=== PATIENT | female | born 1985 | race Two or more races ===

== ENCOUNTER 2017-06-06 14:32 | Emergency (ER) | payer BC ==
[~2017-06-06] VITALS: Ht 152.4 cm; Wt 52.2 kg
[~2017-06-06 14:32] MED LIST: DIPH25CA58 PO; NITR100C62 PO; PRED20TA PO
[2017-06-06] MEDS ORDERED: IV NORMAL SALINE 1000ML BAG 1,000 ML IV ONE (15:30)
[2017-06-06] MEDS ORDERED: IBUPROFEN 800 MG TABLET. PO ONE (15:30)
--- NOTE | 2017-06-06 15:32 | PHYS DOC ---
Past Medical History Past Medical History: No Pertinent History Past Surgical History: Alcohol Use: None Drug Use: None Adult General Chief Complaint Chief Complaint: GENERALIZED BODY ACHES HPI HPI Patient is a 32 year old F who presents with fever and body aches. Patient was seen last week and diagnosed with UTI and finished her antibiotic treatment and comes in today with generalized body ache and fever. Patient complains of a cough is nonproductive. Patient denies any nausea/vomiting/diarrhea. Patient denies any dysuria. Patient has no other complaints. Review of Systems Review of Systems GEN: Fever and body aches HEENT: Denies blurred vision, sore throat CV: Denies chest pain RESP: Denies shortness of air, cough GI: Denies n/v/d NEURO: Denies confusion, dizziness MSK: Denies weakness, joint pain/swelling All other systems were reviewed and found to be within normal limits, except as documented in this note. Current Medications Current Medications Current Medications Medications (Trade) Dose Ordered Sig/Rakesh Start Time Stop Time Status Last Admin Dose Admin Ibuprofen (Motrin) 800 mg 1X ONCE 06/06/17 15:30 06/06/17 15:31 DC 06/06/17 15:35 800 MG Sodium Chloride 1,000 ml @ 1,000 mls/hr 1X ONCE 06/06/17 15:30 06/06/17 16:29 DC 06/06/17 15:35 1,000 MLS/HR Allergies Allergies Allergies Coded Allergies Type Severity Reaction Last Updated Verified No Known Drug Allergies 05/30/17 No Physical Exam Physical Exam GEN.: mod distress. Alert and oriented. HEENT: Head is normocephalic, atraumatic NECK: Supple. LUNGS: CTAB. HEART: Tachycardia, S1, S2 present. Peripheral pulses intact ABDOMEN: Soft, nontender. Positive bowel sounds. EXTREMITIES: Without any cyanosis. NEUROLOGIC: Normal speech, normal tone PSYCHIATRIC: Normal affect, normal mood. SKIN: No ulcerations Current Patient Data Vital Signs Vital Signs Date Time Temp Pulse Resp B/P (MAP) Pulse Ox O2 Delivery O2 Flow Rate FiO2 06/06/17 14:41 102.0 101 16 98 Room Air 102.0 Lab Values Laboratory Tests Test 06/06/17 14:50 06/06/17 14:56 06/06/17 15:35 Urine Collection Type Unknown Urine Color Yellow Urine Clarity Clear Urine pH 8.5 Urine Specific [place] <=1.005 Urine Protein Negative mg/dL (NEG-TRACE) Urine Glucose (UA) Negative mg/dL (NEG) Urine Ketones (Stick) Negative mg/dL (NEG) Urine Blood Negative (NEG) Urine Nitrite Negative (NEG) Urine Bilirubin Negative (NEG) Urine Urobilinogen Dipstick 0.2 mg/dL (0.2 mg/dL) Urine Leukocyte Esterase Negative (NEG) Urine RBC 0 /HPF (0-2) Urine WBC 0 /HPF (0-4) Urine Squamous Epithelial Cells Mod /LPF Urine Bacteria 0 /HPF (0-FEW) POC Urine HCG, Qualitative Hcg negative (Negative) White Blood Count 6.2 x10^3/uL (4.0-11.0) Red Blood Count 5.05 x10^6/uL (3.50-5.40) Hemoglobin 9.8 g/dL (12.0-15.5) L Hematocrit 31.5 % (36.0-47.0) L Mean Corpuscular Volume 62 fL (79-100) L Mean Corpuscular Hemoglobin 20 pg (25-35) L Mean Corpuscular Hemoglobin Concent 31 g/dL (31-37) Red Cell Distribution Width 18.8 % (11.5-14.5) H Platelet Count 173 x10^3/uL (140-400) Neutrophils (%) (Auto) 48 % (31-73) Lymphocytes (%) (Auto) 47 % (24-48) Monocytes (%) (Auto) 4 % (0-9) Eosinophils (%) (Auto) 1 % (0-3) Basophils (%) (Auto) 0 % (0-3) Neutrophils # (Auto) 2.9 x10^3uL (1.8-7.7) Lymphocytes # (Auto) 2.9 x10^3/uL (1.0-4.8) Monocytes # (Auto) 0.2 x10^3/uL (0.0-1.1) Eosinophils # (Auto) 0.1 x10^3/uL (0.0-0.7) Basophils # (Auto) 0.0 x10^3/uL (0.0-0.2) Segmented Neutrophils % 35 % (35-66) Band Neutrophils % 17 % (0-9) H Lymphocytes % 37 % (24-48) Atypical Lymphocytes % (Manual) 5 % (0-0) H Monocytes % 5 % (0-10) Eosinophils % 1 % (0-5) Platelet Estimate Adequate (ADEQUATE) Hypochromasia Marked Poikilocytosis Slight Anisocytosis Slight Microcytosis Marked Ovalocytes Few Sodium Level 134 mmol/L (136-145) L Potassium Level 3.0 mmol/L (3.5-5.1) L Chloride Level 98 mmol/L (98-107) Carbon Dioxide Level 29 mmol/L (21-32) Anion Gap 7 (6-14) Blood Urea Nitrogen 10 mg/dL (7-20) Creatinine 1.1 mg/dL (0.6-1.0) H Estimated GFR (Cockcroft-Gault) 56.9 BUN/Creatinine Ratio 9 (6-20) Glucose Level 98 mg/dL (70-99) Lactic Acid Level 1.8 mmol/L (0.4-2.0) Calcium Level 8.0 mg/dL (8.5-10.1) L Total Bilirubin 0.3 mg/dL (0.2-1.0) Aspartate Amino Transferase (AST) 27 U/L (15-37) Alanine Aminotransferase (ALT) 24 U/L (14-59) Alkaline Phosphatase 52 U/L (46-116) Total Protein 7.0 g/dL (6.4-8.2) Albumin 3.1 g/dL (3.4-5.0) L Albumin/Globulin Ratio 0.8 (1.0-1.7) L Influenza Type A Antigen Negative (NEGATIVE) Influenza Type B Antigen Negative (NEGATIVE) Laboratory Tests 06/06/17 15:35 Laboratory Tests 06/06/17 15:35 EKG EKG 1537: Sinus tach rate of 111 no STEMI[] Radiology/Procedures Radiology/Procedures Chest x-ray NAD[] Course & Med Decision Making Course & Med Decision Making Pertinent Labs and Imaging studies reviewed. (See chart for details) ED course: Patient is seen and examined emergency room basic blood work with UA and left gas was ordered 1705: Patient was updated on blood work and made aware of her hemoglobin of 9.8 and was told to follow-up with PCP and have her rechecked within the next week. Explained the patient she was up as a viral illness and that her bladder infection has resolved and plan to discharge home. Patient was comfortable going home and needs work note. MDM: After reviewing the chart, CC/HPI/PMH, physical exam, [lab results], [ radiological results], I do not believe the patient has a severe bacterial infection warranting further workup and/or admission at this time. I believe the patient has acute viral illness and is stable for discharge and be treated [id number] medication. Recommended patient follow-up with PCP to further evaluate her anemia. Additional verbal discharge instructions were provided to the patient and that if symptoms get worse or any new symptoms arise that are worrisome to the patient she is to return to the emergency room immediately [] Dragon Disclaimer Dragon Disclaimer This electronic medical record was generated, in whole or in part, using a voice recognition dictation system. Departure Departure Impression: Primary Impression: Viral illness Additional Impression: Anemia Disposition: 01 HOME, SELF-CARE Condition: IMPROVED Referrals: NO PCP (PCP) Patient Instructions: Anemia, Nonspecific-Brief, Weakness, [id number] Additional Instructions: Please follow-up with her family doctor the next one to 2 days and return symptoms increase. Please follow-up for your anemia Problem Qualifiers BERENICE GASTELUM DO Jun 06, 2017 15:32
--- NOTE | 2017-06-06 15:34 | EKG ---
[facility] [address] [place] [address] Test Date: 2017-06-06 Test Time: 15:30:48 Pat Name: MARITA DUNBAR Department: Room: Gender: F Ecmo Specialist: : [id number] Requested By: BERENICE GASTELUM Order Number: [id number] Reading MD: Sumit Moore Measurements Intervals [place] Rate: 111 P: 38 WA: 116 QRS: 38 QRSD: 66 T: 26 QT: 368 QTc: 504 Interpretive Statements SINUS TACHYCARDIA OTHERWISE NORMAL ECG RI6.01 No previous ECG available for comparison Electronically Signed On 06-06-2017 16:13:36 MANAGER [employer] by Sumit Moore
--- NOTE | 2017-06-06 15:36 | RAD ---
Chest, 2 views, 06/06/2017: History: Fever and cough The heart size and pulmonary vascularity are normal. The lungs are clear. There is no evidence of pleural fluid IMPRESSION: No acute cardiopulmonary abnormality is detected.
[2017-06-06 15:53] LABS: BILIRUBIN,URINE NEGATIVE (NEG); GLUCOSE,URINE NEGATIVE (NEG); NITRITE,URINE NEGATIVE (NEG); PH,URINE 8.5; PROTEIN,URINE NEGATIVE (NEG-TRACE); UROBILINOGEN,URINE 0.2 mg/dL (0.2 mg/dL)
[2017-06-06 15:59] LABS: BASO % 0 % (0-3); EOS % 1 % (0-3); HEMATOCRIT 31.5 % (36.0-47.0); HEMOGLOBIN 9.8 g/dL (12.0-15.5); LYMPH # 2.9 x10^3/uL (1.0-4.8); LYMPH % 47 % (24-48); MEAN CORPUSCULAR HEMOGLOBIN 20 pg (25-35); MEAN CORPUSCULAR HGB CONC 31 g/dL (31-37); MEAN CORPUSCULAR VOLUME 62 fL (79-100); MONO % 4 % (0-9); NEUT % 48 % (31-73); PLATELET COUNT 173 x10^3/uL (140-400); RED BLOOD COUNT 5.05 x10^6/uL (3.50-5.40); RED CELL DISTRIBUTION WIDTH 18.8 % (11.5-14.5); WHITE BLOOD COUNT 6.2 x10^3/uL (4.0-11.0)
[2017-06-06 16:00] VITALS: BP 127/72
[2017-06-06 16:01] LABS: BACTERIA,URINE 0 /HPF (0-FEW); RBC,URINE 0 /HPF (0-2); SQUAMOUS EPITHELIAL CELL,UR MOD /LPF; WBC,URINE 0 /HPF (0-4)
[2017-06-06 16:04] LABS: ALBUMIN 3.1 g/dL (3.4-5.0); ALBUMIN/GLOBULIN RATIO 0.8 (1.0-1.7); CREATININE 1.1 mg/dL (0.6-1.0); GFR 56.9; TOTAL BILIRUBIN 0.3 mg/dL (0.2-1.0)
[2017-06-06 16:06] LABS: OBC FLU VALID
[2017-06-06 16:42] LABS: % EOS 1 % (0-5); ANISOCYTOSIS SLIGHT; HYPOCHROMIA MARKED; PLT ESTIMATE ADEQUATE (ADEQUATE); POIKILOCYTOSIS SLIGHT
[2017-06-06 16:43] LABS: MICROCYTOSIS MARKED; OVALOCYTES FEW
== END 2017-06-06 17:34 | disposition home or self-care (01) ==
LOC: ER 14:32
DX: B34.9 Viral infection, unspecified (principal); D64.9 Anemia, unspecified; Z87.440 Personal history of urinary (tract) infections
CPT/HCPCS: 36415; 71020; 80053; 81001; 81025; 83605; 85007; 85025; 87040; 87804; 93005; 96360; 99285; J7030